=== PATIENT | female | born 1930 | race Caucasian/White ===

== ENCOUNTER 2017-11-11 14:06 | Emergency (ER) | payer OTHER, MEDICAID ==
[~2017-11-11] VITALS: Wt 56.7 kg
[~2017-11-11 14:06] MED LIST: FORTICAL200 IU/ACT NS; VICODIN 5/500 505 MG PO; VITAMIN D50000 I2 PO; VOLTAREN1% TP
[2017-11-11 14:43] LABS: BILIRUBIN NEGATIVE (NEGATIVE); BLOOD 1+ (NEGATIVE); CLARITY CLEAR (CLEAR); COLOR YELLOW (YELLOW); GLUCOSE NEGATIVE (NEGATIVE); KETONE NEGATIVE (NEGATIVE); LEUKO ESTERASE NEGATIVE (NEGATIVE); NITRITE NEGATIVE (NEGATIVE); PH 5.5 (5.0-9.0); UROBILINOGEN 0.2 E.U./dl (0.2-1.0)
[2017-11-11 14:51] LABS: BACTERIA 1+; EPITHELIAL CELLS 0-2; WBC 0-2 wbc/hpf (0-5)
[2017-11-11 14:52] LABS: MUCOUS TRACE
[2017-11-11 15:39] LABS: BASO # 0.1 10*3/uL (0.0-0.1); BASO % 0.9 % (0.0-1.0); EOS # 0.1 10*3/uL (0.0-0.4); EOS % 0.6 % (1.0-4.0); HEMATOCRIT 42.7 % (37.0-47.0); HEMOGLOBIN 14.2 g/dl (12.0-16.0); LYMPH # 1.4 10*3/uL (1.3-4.4); LYMPH % 12.8 % (27.0-41.0); MEAN CELL VOLUME 86.4 fl (81.0-99.0); MEAN CORPUSCULAR HGB 28.7 pg (27.0-31.0); MEAN CORPUSCULAR HGB CONC 33.3 g/dl (33.0-37.0); MEAN PLATELET VOLUME 8.9 fl (9.6-12.3); MONO # 0.6 10*3/uL (0.1-1.0); MONO % 5.5 % (3.0-9.0); NEUT # 8.4 10*3/uL (2.3-7.9); NEUT % 79.5 % (47.0-73.0); PLATELET COUNT AUTOMATED 191 10*3/uL (130-400); RED BLOOD COUNT 4.94 10*6/uL (4.10-5.10); RED CELL DISTRI WIDTH 13.7 % (0-14.5); WHITE BLOOD COUNT 10.5 10*3/uL (4.8-10.8)
[2017-11-11 15:59] LABS: ALBUMIN 3.2 gm/dl (3.1-4.5); ALKALINE PHOSPHATASE 168 U/L (45-117); BUN 21 mg/dl (7-24); CHLORIDE 106 mmol/L (98-107); CREATININE 1.21 mg/dL (0.55-1.02); POTASSIUM 4.4 mmol/L (3.5-5.1); SGOT/AST 25 IU/L (3-35); SGPT/ALT 23 U/L (12-78); SODIUM 138 mmol/L (136-145); TOTAL PROTEIN 7.4 gm/dL (6.4-8.2)
[2017-11-11 16:01] LABS: TROPONIN I < 0.015 ng/ml (<0.045)
[2017-11-11 19:51] VITALS: BP 156/72
== END 2017-11-11 20:32 | disposition short-term general hospital (02) ==
LOC: ED 14:06
PROVIDERS: Physician Assistant
DX: S72.091A Other fracture of head and neck of right femur, initial encounter for closed fracture (principal); S00.83XA Contusion of other part of head, initial encounter; W01.0XXA Fall on same level from slipping, tripping and stumbling without subsequent striking against object, initial encounter; Y93.89 Activity, other specified; Y92.090 Kitchen in other non-institutional residence as the place of occurrence of the external cause; Y99.9 Unspecified external cause status

== ENCOUNTER 2018-06-19 23:09 | Emergency (ER) | payer OTHER ==
[2018-06-19 23:43] LABS: BILIRUBIN NEGATIVE (NEGATIVE); BLOOD TRACE-INTACT (NEGATIVE); CLARITY SL CLOUDY (CLEAR); COLOR YELLOW (YELLOW); GLUCOSE NEGATIVE (NEGATIVE); KETONE NEGATIVE (NEGATIVE); LEUKO ESTERASE 3+ (NEGATIVE); NITRITE POSITIVE (NEGATIVE); PH 5.5 (5.0-9.0); SPECIFIC GRAVITY >= 1.030 (1.005-1.030); UROBILINOGEN 0.2 E.U./dl (0.2-1.0)
[2018-06-19 23:48] LABS: BASO # 0.1 10*3/uL (0.0-0.1); BASO % 1.3 % (0.0-1.0); EOS # 0.5 10*3/uL (0.0-0.4); HEMATOCRIT 39.2 % (37.0-47.0); HEMOGLOBIN 12.5 g/dl (12.0-16.0); LYMPH # 2.3 10*3/uL (1.3-4.4); LYMPH % 28.5 % (27.0-41.0); MEAN CELL VOLUME 90.3 fl (81.0-99.0); MEAN CORPUSCULAR HGB 28.8 pg (27.0-31.0); MEAN CORPUSCULAR HGB CONC 31.9 g/dl (33.0-37.0); MEAN PLATELET VOLUME 9.6 fl (9.6-12.3); MONO # 0.7 10*3/uL (0.1-1.0); MONO % 9.3 % (3.0-9.0); NEUT # 4.3 10*3/uL (2.3-7.9); NEUT % 54.5 % (47.0-73.0); PLATELET COUNT AUTOMATED 216 10*3/uL (130-400); RED BLOOD COUNT 4.34 10*6/uL (4.10-5.10); RED CELL DISTRI WIDTH 14.3 % (0-14.5); WHITE BLOOD COUNT 7.9 10*3/uL (4.8-10.8)
[2018-06-19 23:49] LABS: BACTERIA 3+; WBC TNTC wbc/hpf (0-5)
[2018-06-19 23:59] LABS: BUN 17 mg/dl (7-24); CHLORIDE 112 mmol/L (98-107); POTASSIUM 3.9 mmol/L (3.5-5.1); SODIUM 144 mmol/L (136-145)
[2018-06-20] MEDS ORDERED: KEFLEX500 M1 PO (00:25)
[2018-06-20 01:01] VITALS: BP 130/76
== END 2018-06-20 01:46 | disposition home or self-care (01) ==
LOC: ED 23:09
PROVIDERS: Emergency Medicine Emergency Medical Services
DX: R41.82 Altered mental status, unspecified (principal); N39.0 Urinary tract infection, site not specified; F03.90 Unspecified dementia, unspecified severity, without behavioral disturbance, psychotic disturbance, mood disturbance, and anxiety

== ENCOUNTER 2019-03-07 17:20 | Inpatient (IN) | payer OTHER ==
[~2019-03-07] VITALS: Ht 157.4 cm; Wt 45.5 kg
--- NOTE | ~2019-03-07 | CON ---
[place], [place] REPORT OF CONSULTATION NAME: VENUS FERRIS UNIT #: [id number] ROOM: 525 DOCTOR: ROWDY SINGLETON BIRTHDATE: [birth year] DOS: 03/08/2019 CARDIOLOGY CONSULTATION REASON FOR CONSULTATION: Chest pain. REQUESTING PHYSICIAN: Dr. Jared Schultz. HISTORY OF PRESENT ILLNESS: The patient is a very pleasant 88-year-old female who lives in a nursing facility. She was brought in for evaluation of chest pain, which she states started yesterday. She describes it as feeling like she was being stabbed in the chest on the left side. It was nonradiating. It occurred while sitting in her wheelchair, lasted several hours. It was worsened with moving her left arm. There was no associated diaphoresis, nausea or shortness of breath. She denies any prior cardiac history. Three sets of troponins have been negative. EKG has shown no acute findings. A dedicated rib film this morning did reveal a third left rib fracture. REVIEW OF SYSTEMS: A complete review of systems is negative except as described above. PAST MEDICAL HISTORY: History of transient ischemic attack, history of rib fracture. PAST SURGICAL HISTORY: The patient denies. SOCIAL HISTORY: Former smoker, quit several years back. Denies alcohol or drug use. Lives in a nursing facility. FAMILY HISTORY: The patient denies any significant family history. ALLERGIES: No known drug allergies. HOME MEDICATIONS: Include acetaminophen, aspirin 81 mg daily, famotidine, memantine 10 mg b.i.d., mirtazapine 15 mg at bedtime, potassium chloride 40 mEq daily, rivastigmine 6 mg p.o. b.i.d. PHYSICAL EXAMINATION: GENERAL APPEARANCE: She is an elderly lady lying in bed, in no distress. HEENT: Shows moist mucous membranes. NECK: Supple. JVP normal. No carotid bruits. RESPIRATORY: Crackles at the right base and scant crackles in the left base. CARDIOVASCULAR: Regular rhythm with a normal rate with frequent extra beats. No murmurs. PMI is nondisplaced. She did have significant chest wall tenderness on the left anterior chest, reproducing her pain that prompted evaluation. ABDOMEN: Positive bowel sounds. Soft, nontender. No organomegaly. EXTREMITIES: Warm and well perfused. Moves all extremities. There is no [place], [place] REPORT OF CONSULTATION NAME: VENUS FERRIS UNIT #: [id number] ROOM: 525 DOCTOR: ROWDY SINGLETON BIRTHDATE: [birth year] edema. SKIN: No lesions or rashes. NEUROLOGICAL: Nonfocal. LABORATORY DATA: Hemoglobin 9.5, platelets 318. Potassium 3.9, BUN 29, creatinine 1.12. A1c 5.2, magnesium 2.2. Three sets of troponin are negative. EKG showed sinus rhythm with normal axis and normal intervals with occasional PVCs. 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 No acute ST or T-wave changes over serial EKGs. Chest x-ray showed some cardiomegaly with no acute cardiopulmonary process. Dedicated rib film showed acute fracture of the left third rib. IMPRESSION: Musculoskeletal chest pain due to rib fracture. RECOMMENDATION: No evidence of cardiac etiology of pain or any acute coronary syndrome at this point. She has clearly reproducible pain and acute fracture on rib imaging. No further cardiac workup required at this time. Pain control per the primary team. Encourage incentive spirometry to avoid atelectasis and pneumonia. Thank you for the consultation. Please do not hesitate to call with any questions. Dr. ROWDY SINGLETON MD CM:CONSTR:REPORT OF CONSULTATION [id number] 03/08/19 1306 interface
--- NOTE | ~2019-03-07 | EKG ---
[place], [place] ELECTROCARDIOGRAM REPORT NAME: VENUS FERRIS UNIT #: [id number] ROOM: 525 DOCTOR: SOLEDAD DRAFT REPORT BIRTHDATE: [birth year] [facility] Test Date: 2019-03-07 Test Time: 19:49:38 Pat Name: VENUS FERRIS Department: Room: [facility] Gender: F [employer] Marketing Specialist: Ana Valera : 1930 Requested By: MELITON CAMARILLO Order Number: [id number] Reading MD: Bhavesh Marks MD Measurements Intervals [place] Rate: 80 P: 16 [place]: 177 QRS: -20 QRSD: 84 T: 35 QT: 393 QTc: 454 Interpretive Statements Sinus rhythm Ventricular trigeminy Inferoposterior infarct, old Electronically Signed On 03-08-2019 5:51:46 PDT by Bhavesh Marks MD CM:EKGRPT:ELECTROCARDIOGRAM REPORT [id number] MELITON CAMARILLO MD EPIPHCAIN DRAFT REPORT MELITON CAMARILLO MD
--- NOTE | ~2019-03-07 | EKG ---
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
--- NOTE | ~2019-03-07 | EKG ---
[place], [place] ELECTROCARDIOGRAM REPORT NAME: VENUS FERRIS UNIT #: [id number] ROOM: 525 DOCTOR: SOLEDAD DRAFT REPORT BIRTHDATE: [birth year] [facility] Test Date: 2019-03-07 Test Time: 23:16:25 Pat Name: VENUS FERRIS Department: Room: [facility] Gender: F [employer] Director: Ana Valera : 1930 Requested By: MELITON CAMARILLO Order Number: [id number] Reading MD: Bhavesh Marks MD Measurements Intervals [place] Rate: 85 P: 30 [place]: 181 QRS: -19 QRSD: 77 T: 5 QT: 382 QTc: 455 Interpretive Statements Sinus rhythm Ventricular trigeminy Inferoposterior infarct, old Electronically Signed On 03-08-2019 5:54:54 PDT by Bhavesh Marks MD CM:EKGRPT:ELECTROCARDIOGRAM REPORT [id number] MELITON CAMARILLO MD EPIPHCAIN DRAFT REPORT MELITON CAMARILLO MD
[~2019-03-07 17:20] MED LIST changes: +KEFLEX500 M1 PO
[2019-03-07 17:28] VITALS: BP 110/60
[2019-03-07 17:40] LABS: BASO # 0.1 10*3/uL (0.0-0.1); BASO % 1.5 % (0.0-1.0); EOS # 0.7 10*3/uL (0.0-0.4); EOS % 8.5 % (1.0-4.0); HEMATOCRIT 32.8 % (37.0-47.0); HEMOGLOBIN 9.8 g/dl (12.0-16.0); LYMPH # 2.4 10*3/uL (1.3-4.4); LYMPH % 29.6 % (27.0-41.0); MEAN CELL VOLUME 77.7 fl (81.0-99.0); MEAN CORPUSCULAR HGB 23.2 pg (27.0-31.0); MEAN CORPUSCULAR HGB CONC 29.9 g/dl (33.0-37.0); MEAN PLATELET VOLUME 10.5 fl (9.6-12.3); MONO # 0.7 10*3/uL (0.1-1.0); MONO % 8.2 % (3.0-9.0); NEUT # 4.1 10*3/uL (2.3-7.9); NEUT % 51.7 % (47.0-73.0); PLATELET COUNT AUTOMATED 326 10*3/uL (130-400); RED BLOOD COUNT 4.22 10*6/uL (4.10-5.10)
[2019-03-07 17:50] LABS: ACT PARTIAL THROMBO TIME 23.4 SECONDS (20.0-32.1); INTERNATIONAL NORM RATIO 0.9 (2.0-3.5)
[2019-03-07 17:58] LABS: ALBUMIN 2.7 gm/dl (3.1-4.5); ALKALINE PHOSPHATASE 261 U/L (45-117); BUN 34 mg/dl (7-24); CHLORIDE 114 mmol/L (98-107); CREATININE 1.39 mg/dL (0.55-1.02); POTASSIUM 4.6 mmol/L (3.5-5.1); SGOT/AST 32 IU/L (3-35); SGPT/ALT 28 U/L (12-78); SODIUM 142 mmol/L (136-145); TOTAL PROTEIN 7.2 gm/dL (6.4-8.2)
[2019-03-07 17:59] LABS: TROPONIN I < 0.015 ng/ml (<0.045)
[2019-03-07 18:40] VITALS: BP 104/64
[2019-03-07 18:49] VITALS: BP 104/64
[2019-03-07] MEDS ORDERED: ASPIRIN ADULT L81 M1 PO (19:01)
[2019-03-07] MEDS ORDERED: DOCUSATE SODIU100 M3 PO (19:02)
[2019-03-07] MEDS ORDERED: RIVASTIGMINE TAR6 M1 PO (19:03)
[2019-03-07] MEDS ORDERED: GOOD NEIGHBOR P20 MG PO (19:04)
[2019-03-07] MEDS ORDERED: MEGACE 40400 MG/10 PO (19:04)
[2019-03-07] MEDS ORDERED: MILK OF MA400 MG/5 M PO (19:05)
[2019-03-07] MEDS ORDERED: MIRTAZAPINE15 M2 PO (19:05)
[2019-03-07] MEDS ORDERED: OCUVITE ADULT1 EAC1 PO (19:06)
[2019-03-07] MEDS ORDERED: NAMENDA10 MG PO (19:06)
[2019-03-07] MEDS ORDERED: POTASSIUM CHLO20 ME3 PO (19:07)
[2019-03-07] MEDS ORDERED: PAIN & FEVER R325 MG PO (19:08)
[2019-03-07 20:00] VITALS: BP 112/77
[2019-03-08] VITALS: BP 120/50
[2019-03-08 06:54] LABS: BASO # 0.1 10*3/uL (0.0-0.1); BASO % 1.4 % (0.0-1.0); EOS # 0.7 10*3/uL (0.0-0.4); EOS % 8.9 % (1.0-4.0); HEMATOCRIT 31.8 % (37.0-47.0); HEMOGLOBIN 9.5 g/dl (12.0-16.0); LYMPH # 2.8 10*3/uL (1.3-4.4); LYMPH % 36.6 % (27.0-41.0); MEAN CELL VOLUME 76.8 fl (81.0-99.0); MEAN CORPUSCULAR HGB 22.9 pg (27.0-31.0); MEAN CORPUSCULAR HGB CONC 29.9 g/dl (33.0-37.0); MEAN PLATELET VOLUME 10.9 fl (9.6-12.3); MONO # 0.7 10*3/uL (0.1-1.0); MONO % 8.6 % (3.0-9.0); NEUT # 3.4 10*3/uL (2.3-7.9); NEUT % 44.1 % (47.0-73.0); PLATELET COUNT AUTOMATED 316 10*3/uL (130-400); RED BLOOD COUNT 4.14 10*6/uL (4.10-5.10); WHITE BLOOD COUNT 7.7 10*3/uL (4.8-10.8)
[2019-03-08 07:12] LABS: CREATININE 1.12 mg/dL (0.55-1.02); PHOSPHOROUS 3.1 mg/dL (2.5-4.9); POTASSIUM 3.9 mmol/L (3.5-5.1)
[2019-03-08 08:00] VITALS: BP 118/62; BP 120/84
[2019-03-08 16:00] VITALS: BP 107/67
[2019-03-08 20:00] VITALS: BP 112/64
[2019-03-09] VITALS: BP 125/63
[2019-03-09 06:25] LABS: BASO # 0.1 10*3/uL (0.0-0.1); BASO % 1.6 % (0.0-1.0); EOS # 0.4 10*3/uL (0.0-0.4); EOS % 4.4 % (1.0-4.0); HEMATOCRIT 32.7 % (37.0-47.0); HEMOGLOBIN 9.6 g/dl (12.0-16.0); LYMPH # 2.9 10*3/uL (1.3-4.4); LYMPH % 32.8 % (27.0-41.0); MEAN CELL VOLUME 77.7 fl (81.0-99.0); MEAN CORPUSCULAR HGB 22.8 pg (27.0-31.0); MEAN CORPUSCULAR HGB CONC 29.4 g/dl (33.0-37.0); MEAN PLATELET VOLUME 10.4 fl (9.6-12.3); MONO # 0.8 10*3/uL (0.1-1.0); NEUT # 4.6 10*3/uL (2.3-7.9); NEUT % 51.8 % (47.0-73.0); PLATELET COUNT AUTOMATED 319 10*3/uL (130-400); RED BLOOD COUNT 4.21 10*6/uL (4.10-5.10); RED CELL DISTRI WIDTH 17.9 % (0-14.5)
[2019-03-09 06:37] LABS: CREATININE 1.12 mg/dL (0.55-1.02); POTASSIUM 4.3 mmol/L (3.5-5.1)
[2019-03-09 08:00] VITALS: BP 117/62
[2019-03-09] MEDS ORDERED: NORCO 5-325 TA1 EACH PO (09:10)
== END 2019-03-09 10:48 | DRG 205 ==
LOC: ED 17:20 → 5E 17:59 → EDHOLD 17:59 → 5E 18:34
PROVIDERS: Emergency Medicine; Student in an Organized Health Care Education/Training Program; ADMIT Emergency Medicine
DX: S22.32XA Fracture of one rib, left side, initial encounter for closed fracture (principal); N17.0 Acute kidney failure with tubular necrosis; E43 Unspecified severe protein-calorie malnutrition; Z68.1 Body mass index [BMI] 19.9 or less, adult; N18.3 Chronic kidney disease, stage 3 (moderate); Z66 Do not resuscitate; Z51.5 Encounter for palliative care; E87.8 Other disorders of electrolyte and fluid balance, not elsewhere classified; E83.41 Hypermagnesemia; R00.1 Bradycardia, unspecified; R06.82 Tachypnea, not elsewhere classified; X58.XXXA Exposure to other specified factors, initial encounter; Y93.89 Activity, other specified; Y92.89 Other specified places as the place of occurrence of the external cause; Y99.8 Other external cause status; Z87.891 Personal history of nicotine dependence; Z86.73 Personal history of transient ischemic attack (TIA), and cerebral infarction without residual deficits; Z87.440 Personal history of urinary (tract) infections; Z82.3 Family history of stroke; Z82.49 Family history of ischemic heart disease and other diseases of the circulatory system; Z80.8 Family history of malignant neoplasm of other organs or systems; Z79.899 Other long term (current) drug therapy; Z79.82 Long term (current) use of aspirin; R07.89 Other chest pain